=== PATIENT | female | born 1960 | race Caucasian/White ===

== ENCOUNTER 2019-05-02 12:16 | Emergency (ER) | payer BC ==
[2019-05-02] MEDS ORDERED: Diphtheria,Pertussis(Acell),Tetanus Vaccine 0.5 ML SDV IM ONE (13:06)
--- NOTE | 2019-05-02 13:20 | EDM.PDOC ---
ED HPI GENERAL MEDICAL PROBLEM - General Chief Complaint: Laceration Stated Complaint: TRIPPED ON DOG BED AND FELL Time Seen by Provider: 05/02/19 12:56 Source of Information: Reports: Patient History Limitations: Reports: No Limitations - History of Present Illness INITIAL COMMENTS - FREE TEXT/NARRATIVE: Patient is a 58-year-old female who presents to the emergency department via private vehicle with a complaint of scalp laceration. Patient states that she tripped while at home, hit the back of her head on a wall and then fell forward landing on her face. Patient sustained abrasion and swelling to face. Patient states she has a mild headache, but she did not lose consciousness. Patient denies neck pain, blurry vision, dizziness, nausea, vomiting, or any other pain or injury. 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 - Related Data Allergies Allergy/AdvReac Type Severity Reaction Status Date / Time Sulfa (Sulfonamide Allergy Swelling Verified 05/02/19 12:27 Antibiotics) Home Meds: Home Meds Citalopram [Citalopram HBr] 20 mg PO DAILY 05/02/19 [History] Losartan [Cozaar] 100 mg PO DAILY 05/02/19 [History] busPIRone HCl [Buspirone HCl] 15 mg PO BID PRN 05/02/19 [History] hydroCHLOROthiazide [Hydrochlorothiazide] 25 mg PO DAILY 05/02/19 [History] metFORMIN HCl [Metformin HCl] 500 mg PO DAILY 05/02/19 [History] Past Medical History Cardiovascular History: Reports: Hypertension - Past Surgical History HEENT Surgical History: Reports: Tonsillectomy Female Surgical History: Reports: Section Musculoskeletal Surgical History: Reports: Hip Replacement, Other (See Below) Other Musculoskeletal Surgeries/Procedures:: Tendon repair to left foot. Social & Family History - Tobacco Use Smoking Status *Q: Never Smoker Second Hand Smoke Exposure: No - Caffeine Use Caffeine Use: Reports: Coffee, Soda - Recreational Drug Use Recreational Drug Use: No ED ROS GENERAL - Review of Systems Review Of Systems: Comprehensive ROS is negative, except as noted in HPI. Constitutional: Reports: No Symptoms HEENT: Reports: No Symptoms Respiratory: Reports: No Symptoms Cardiovascular: Reports: No Symptoms Endocrine: Reports: No Symptoms GI/Abdominal: Reports: No Symptoms : Reports: No Symptoms Musculoskeletal: Reports: No Symptoms Skin: Reports: Bruising (Midforehead), Wound (5 cm laceration to superior scalp) Neurological: Reports: Headache Psychiatric: Reports: No Symptoms Hematologic/Lymphatic: Reports: No Symptoms Immunologic: Reports: No Symptoms ED EXAM, SKIN/RASH Exam: See Below Exam Limited By: No Limitations General Appearance: Alert, WD/WN, No Apparent Distress Ears: Normal External Exam, Normal Canal, Normal TMs Nose: Nasal Swelling, Other (Septal deviation) Throat/Mouth: Normal Inspection, Normal Oropharynx, No Airway Compromise Head: Facial Swelling, Facial Tenderness, Other (Laceration superior aspect of scalp) Neck: Normal Inspection, Supple, Non-Tender, Full Range of Motion Respiratory/Chest: No Respiratory Distress GI/Abdominal: Pelvis Stable Back Exam: Normal Inspection, Full Range of Motion Extremities: Normal Inspection, Normal Range of Motion, Non-Tender, No Pedal Edema Neurological: Alert, Oriented, CN II-XII Intact, Normal Cognition, No Motor/ Sensory Deficits Psychiatric: Normal Affect, Normal Mood Skin: Warm, Dry, Normal Color, No Rash, Wound/Incision (5 cm linear laceration to superior scalp), Other (No bogginess or depression noted) Location, Skin: Head ED SKIN PROCEDURES - Laceration/Wound Repair [place] Head Appearance: Subcutaneous Distal NVT: Neuro & Vascular Intact Anesthetic Type: Local Local Anesthesia - Lidocaine (Xylocaine): 1% with EPI Local Anesthetic Volume: 5cc Skin Prep: Providone-Iodine (Betadine) Closed with: [place]/Wound length In cm: 5 # of Sutures: 13 Tetanus Status Addressed: Yes Complications: No Course - Vital Signs Last Recorded V/S: Last Vital Signs Temp 97 F 05/02/19 12:23 Pulse 88 05/02/19 12:23 Resp 20 05/02/19 12:23 BP 144/64 H 05/02/19 12:23 Pulse Ox - Orders/Labs/Meds Orders: Active Orders 24 hr Category Date Time Status Vaccines to be Administered [RC] PER UNIT ROUTINE Care 05/02/19 13:06 Ordered Head wo Cont [CT] Stat Exams 05/02/19 12:56 Ordered Max Facial Sinus wo Cont [CT] Stat Exams 05/02/19 12:56 Ordered Meds: Medications Discontinued Medications Generic Name Dose Route Start Last Admin Trade Name Abby PRN Reason Stop Dose Admin Diphtheria/Tetanus/Acell Pertussis 0.5 ml 05/02/19 13:06 Adacel IM 05/02/19 13:07 .ONCE ONE - Radiology Interpretation Free Text/Narrative:: CT without contrast of head and maxillofacial shows no intracranial process, however, there is a right nasal bone fracture. - Re-Assessments/Exams Free Text/Narrative Re-Assessment/Exam: 05/02/19 14:28 Patient afebrile, vital signs stable, tolerated procedure well. Discussed with patient stable removal in 10 days. Also spoke with patient about plastic surgery follow-up for fractured nasal bone. Patient will follow[facility] at [facility] Departure - Departure Time of Disposition: 14:31 Disposition: Home, Self-Care 01 Condition: Good Clinical Impression: Head injury without fracture of skull Qualifiers: Encounter type: initial encounter Qualified Code(s): S09.90XA - Unspecified injury of head, initial encounter Scalp laceration Qualifiers: Encounter type: initial encounter Qualified Code(s): S01.01XA - Laceration without foreign body of scalp, initial encounter Nasal bones, closed fracture Qualifiers: Encounter type: initial encounter Qualified Code(s): S02.2XXA - Fracture of nasal bones, initial encounter for closed fracture - Discharge Information Instructions: Nasal Fracture, [id number], Stitches, [place], or Adhesive Wound Closure, [id number], Laceration Care, Adult, [id number], Head Injury, Adult, [id number] Referrals: Rehana Kong MD [Primary Care Provider] - Additional Instructions: Follow-up with Dr. Valencia in 2 days. Staple removal in 10 days. Return to emergency department sooner if symptoms continue or worsen. Sepsis Event Note - Evaluation Sepsis Screening Result: No Definite Risk - Focused Exam Vital Signs: Vital Signs Temp Pulse Resp BP 05/02/19 12:23 97 F 88 20 144/64 H Date Exam was Performed: 05/02/19 Time Exam was Performed: 13:13 - My Orders Last 24 Hours: My Active Orders 05/02/19 12:56 Head wo Cont [CT] Stat Max Facial Sinus wo Cont [CT] Stat 05/02/19 13:06 Vaccines to be Administered [RC] PER UNIT ROUTINE - Assessment/Plan Last 24 Hours: My Active Orders 05/02/19 12:56 Head wo Cont [CT] Stat Max Facial Sinus wo Cont [CT] Stat 05/02/19 13:06 Vaccines to be Administered [RC] PER UNIT ROUTINE Assessment:: Head injury, nasal bone fracture Plan: Follow-up at clinic
[2019-05-02] MEDS ORDERED: Lidocaine 1% with EPINEPHrine 1:100,000 20 ML MDV INJECT ONE (13:45)
[2019-05-02] MEDS ORDERED: Bacitracin/Neomycin/Polymyxin B Oint 0.9 GM U/D Packet TOP ONE (13:53)
[2019-05-02] MEDS: Lidocaine 1% with EPINEPHrine 1:100,000 20 ML MDV ONE (13:57)
--- NOTE | 2019-05-02 14:19 | CT ---
[id number] CT/CT Head WO IV EXAM: NONCONTRAST HEAD CT INDICATION: TRAUMA. COMPARISON: None. DISCUSSION: Right forehead hematoma. Soft tissue gas and swelling near the vertex of the scalp compatible with laceration. The ventricles and sulci are normal in size and configuration. Mild multifocal white matter hypoattenuation is nonspecific, but generally ascribed to chronic small vessel ischemia. No mass effect or midline shift. No acute hemorrhage or extra-axial fluid collection. No acute territorial infarct is identified. The orbits and paranasal sinuses will be detailed on a dedicated facial bone study. IMPRESSION: 1. Scalp laceration and right forehead hematoma. 2. Negative for acute intracranial trauma. Kenneth Zurita MD 05/02/19 1418 Thank you for allowing us to participate in the care of your patient.
--- NOTE | 2019-05-02 14:23 | CT ---
[id number] CT/CT Facial Bones WO IV EXAM: FACIAL BONE CT WITHOUT CONTRAST INDICATION: TRAUMA. COMPARISON: None. DISCUSSION: A nondisplaced right nasal bone fracture suggested. The facial bones are otherwise normal in appearance. Frothy secretions in the left sphenoid sinus suggest acute sinusitis. Mild focal sinus mucosal thickening or mucosal retention cysts in the inferior aspect of the left maxillary sinus. Soft tissue swelling within the right forehead. IMPRESSION: 1. Acute nondisplaced right nasal bone fracture is suggested. Kenneth Zurita MD 05/02/19 1422 Thank you for allowing us to participate in the care of your patient.
[2019-05-04] MEDS: Lidocaine 1% with EPINEPHrine 1:100,000 20 ML MDV ONE (10:42)
== END 2019-05-02 14:40 | disposition home or self-care (01) ==
LOC: KA.ED 12:16
DX: S02.2XXA Fracture of nasal bones, initial encounter for closed fracture (principal); S01.01XA Laceration without foreign body of scalp, initial encounter; I10 Essential (primary) hypertension; Z88.2 Allergy status to sulfonamides; Z79.899 Other long term (current) drug therapy; Z79.84 Long term (current) use of oral hypoglycemic drugs; Z23 Encounter for immunization; W01.198A Fall on same level from slipping, tripping and stumbling with subsequent striking against other object, initial encounter; Y92.009 Unspecified place in unspecified non-institutional (private) residence as the place of occurrence of the external cause
CPT/HCPCS: 12002; 70450; 70486; 90471; 90715; 99283-25